=== PATIENT | male | born 1985 | race African-American/Black ===

== ENCOUNTER 2020-11-03 13:35 | Inpatient (IN) | payer OTHER ==
[~2020-11-03] VITALS: Ht 182.9 cm; Wt 124.6 kg
[2020-11-03] MEDS ORDERED: ASPirin 81 mg TAB PO ONE (14:00)
[2020-11-03 14:54] LABS: Basophils # (auto) 0.1 10 ^3/uL (0-0.2); Eosinophils # (auto) 0.1 10 ^3/uL (0-0.8); Eosinophils % (auto) 2.1 % (0.0-7.0); Hematocrit 41.7 % (41.0-53.0); Hemoglobin 14.7 g/dL (13.5-17.5); Lymphocytes # (auto) 2.2 10 ^3/uL (0.4-5.4); Lymphocytes % (auto) 35.7 % (10.0-50.0); Mean Corpuscular Hemoglobin 30.1 pg (28.0-32.0); Mean Corpuscular Hgb Conc. 35.2 g/dL (32.0-36.0); Mean Corpuscular Volume 85.4 fL (80.0-100.0); Monocytes # (auto) 0.7 10 ^3/uL (0-1.3); Monocytes % (auto) 10.7 % (0.0-12.0); Neutrophils # (auto) 3.1 10 ^3/uL (1.6-8.6); Neutrophils % (auto) 50.5 % (37.0-80.0); Nucleated Red Blood Cells % 0.5 %; Platelet Count (auto) 252 10^3/uL (140-450); Red Blood Cells 4.89 10^6/uL (4.5-5.90); Red Cell Distribution Width 13.9 % (11.8-14.3); White Blood Cell 6.2 10^3/uL (4.4-10.8)
[2020-11-03 15:08] LABS: INR 1.03 (0.9-1.15); Partial Thromboplastin Time 25.8 sec (23.0-31.2)
[2020-11-03 15:09] LABS: Anion Gap 7 (5-15); Calcium 8.8 mg/dL (8.5-10.1); Carbon Dioxide 22 mmol/L (21-32); Chloride 111 mmol/L (98-107); Glucose 125 mg/dL (74-106); Potassium 3.9 mmol/L (3.5-5.1); Sodium 140 mmol/L (136-145)
[2020-11-03 15:17] LABS: Alanine Aminotransferase 44 U/L (16-61); Albumin 3.8 g/dL (3.4-5.0); Alkaline Phosphatase 64 U/L (45-117); Aspartate Aminotransferase 26 U/L (15-37); Bilirubin, Total 0.4 mg/dL (0.2-1.0); GFR African American 152 mL/min; GFR Non-African American 125 mL/min; Total Protein 6.9 g/dL (6.4-8.2)
[2020-11-03] MEDS ORDERED: ONDANSETRON HCL 4 MG/2 ML VIAL IV PRN (16:30)
[2020-11-03] MEDS ORDERED: DEXTROSE (50%) 50ML SYRG IV PRN (16:30)
[2020-11-03] MEDS ORDERED: DOCUSATE SOD 100 MG CAP PO PRN (16:30)
[2020-11-03] MEDS ORDERED: HYDROcodone-ACET 10/325MG TAB PO PRN (16:30)
[2020-11-03] MEDS ORDERED: MORPHINE SULF INJ 2 MG/ML SYRINGE 1ML IV PRN (16:30)
[2020-11-03] MEDS ORDERED: NITROGLYCERIN 0.4 MG SL TAB SL PRN (16:30)
[2020-11-03 16:48] LABS: BUN/Creatinine Ratio 14.7; Blood Urea Nitrogen 11 mg/dL (7-18)
[2020-11-03] MEDS ORDERED: SOD CHL 0.45% 1,000 ML IV ONE (17:30)
[2020-11-03] MEDS: metFORMIN HYDROCHLORIDE 500 MG TAB PO SCH (18:51)
[2020-11-03] MEDS: FUROSEMIDE 40 MG TAB PO SCH (18:51)
[2020-11-03 20:00] VITALS: BP 152/98
[2020-11-03 22:00] VITALS: BP 146/86
[2020-11-03] MEDS: ACCU-CHEK COMFORT CURVE STRIP VI SCH (22:00)
[2020-11-03] MEDS: CARVEDILOL 12.5 MG TAB PO SCH (22:44)
[2020-11-03] MEDS: InsuLIN REG 1unit/0.01ml Soln (100units/ml) SC SCH (22:47)
[2020-11-03] MEDS: INSULIN LANTUS (GLARGINE) 1 /0.01ml (100units/ml) SC SCH (22:48)
[2020-11-04] MEDS ORDERED: SACU1TAB7 PO (04:13)
[2020-11-04 05:00] VITALS: BP 128/83
[2020-11-04] MEDS: metFORMIN HYDROCHLORIDE 500 MG TAB PO SCH ×2 (06:20→17:09)
[2020-11-04] MEDS: FUROSEMIDE 40 MG TAB PO SCH ×2 (06:20→17:10)
[2020-11-04] MEDS ORDERED: METF-371 PO (06:33)
[2020-11-04 08:40] VITALS: BP 134/90
[2020-11-04] MEDS: CARVEDILOL 12.5 MG TAB PO SCH ×2 (10:19→21:43)
[2020-11-04] MEDS: InsuLIN REG 1unit/0.01ml Soln (100units/ml) SC SCH ×2 (10:20→22:00)
[2020-11-04] MEDS: ENOXAPARIN SOD 40 MG/0.4 ML SYRINGE SC SCH (10:22)
[2020-11-04] MEDS: ACCU-CHEK COMFORT CURVE STRIP VI SCH ×2 (10:22→21:44)
[2020-11-04] MEDS ORDERED: OPTISON 3ml Vial for INJ IV ONE (10:34)
[2020-11-04 13:00] VITALS: BP 128/81
[2020-11-04 17:00] VITALS: BP 133/73
[2020-11-04 22:00] VITALS: BP 122/74
[2020-11-04] MEDS: INSULIN LANTUS (GLARGINE) 1 /0.01ml (100units/ml) SC SCH (22:00)
[2020-11-05 05:00] VITALS: BP 118/73
[2020-11-05] MEDS: FUROSEMIDE 40 MG TAB PO SCH (06:10)
[2020-11-05] MEDS: metFORMIN HYDROCHLORIDE 500 MG TAB PO SCH (06:26)
[2020-11-05 09:04] VITALS: BP 127/88
[2020-11-05] MEDS: CARVEDILOL 12.5 MG TAB PO SCH (09:40)
[2020-11-05] MEDS: ENOXAPARIN SOD 40 MG/0.4 ML SYRINGE SC SCH (09:41)
[2020-11-05] MEDS: InsuLIN REG 1unit/0.01ml Soln (100units/ml) SC SCH (09:42)
[2020-11-05] MEDS: ACCU-CHEK COMFORT CURVE STRIP VI SCH (09:42)
[2020-11-05] MEDS ORDERED: CARV25TA55 PO (15:02)
[2020-11-05 15:45] VITALS: BP 128/62
== END 2020-11-05 17:10 | DRG 281 ==
LOC: EDBD 13:35 → ER 13:35 → EEVIPCON 13:35 → TELE-WESTW 16:38
PROVIDERS: ADMIT Internal Medicine; ATTEND Internal Medicine
PROC: 4B02XTZ Measurement of Cardiac Defibrillator, External Approach (ICD-10-PCS; principal; 2020-11-05)
DX: I21.9 Acute myocardial infarction, unspecified (principal); I42.9 Cardiomyopathy, unspecified; E11.9 Type 2 diabetes mellitus without complications; E78.5 Hyperlipidemia, unspecified; F12.90 Cannabis use, unspecified, uncomplicated; I49.9 Cardiac arrhythmia, unspecified; I10 Essential (primary) hypertension; Z87.891 Personal history of nicotine dependence; Z95.810 Presence of automatic (implantable) cardiac defibrillator; Z88.8 Allergy status to other drugs, medicaments and biological substances; Z20.822 Contact with and (suspected) exposure to COVID-19
CPT/HCPCS: 36415; 71045; 80053; 82962; 83880; 84484; 85025; 85610; 85730; 87426; 93005; 93306; 96360; 96361; G0378; J1815; Q9956

== ENCOUNTER 2021-09-24 09:40 | Emergency (ER) | payer OTHER ==
[~2021-09-24] VITALS: Ht 188 cm; Wt 127.0 kg
[~2021-09-24 09:40] MED LIST: CARV25TA55 PO; METF-371 PO; SACU1TAB7 PO
[2021-09-24 11:08] LABS: Basophils # (auto) 0.1 10 ^3/uL (0-0.2); Eosinophils # (auto) 0.1 10 ^3/uL (0-0.8); Eosinophils % (auto) 1.1 % (0.0-7.0); Hematocrit 40.2 % (41.0-53.0); Hemoglobin 13.7 g/dL (13.5-17.5); Lymphocytes # (auto) 1.4 10 ^3/uL (0.4-5.4); Lymphocytes % (auto) 18.3 % (10.0-50.0); Mean Corpuscular Hemoglobin 28.3 pg (28.0-32.0); Mean Corpuscular Volume 83.3 fL (80.0-100.0); Monocytes # (auto) 0.4 10 ^3/uL (0-1.3); Monocytes % (auto) 4.7 % (0.0-12.0); Neutrophils # (auto) 5.9 10 ^3/uL (1.6-8.6); Neutrophils % (auto) 74.9 % (37.0-80.0); Nucleated Red Blood Cells % 0.1 %; Red Blood Cells 4.83 10^6/uL (4.5-5.90); White Blood Cell 7.9 10^3/uL (4.4-10.8)
[2021-09-24] MEDS ORDERED: ASPirin 81 mg TAB PO ONE (11:15)
[2021-09-24 14:01] LABS: Albumin 3.2 g/dL (3.4-5.0); BUN/Creatinine Ratio 10.3; Calcium 8.5 mg/dL (8.5-10.1); Potassium 4.2 mmol/L (3.5-5.1)
[2021-09-24 14:05] LABS: Bilirubin, Total 0.6 mg/dL (0.2-1.0); Total Protein 6.4 g/dL (6.4-8.2)
[2021-09-24 14:38] VITALS: BP 144/92
[2021-09-24 15:59] LABS: Urine Bacteria NONE SEEN /hpf (None Seen); Urine Blood Negative /uL (Negative); Urine Specific Gravity 1.008 (1.001-1.035); Urine WBC <1 /hpf (0 - 3)
== END 2021-09-24 15:15 | disposition left against medical advice (07) ==
LOC: EDBD 09:40 → ER 09:52 → EEVIPCON 09:52 → ER 15:15
DX: I24.9 Acute ischemic heart disease, unspecified (principal); E11.9 Type 2 diabetes mellitus without complications; I10 Essential (primary) hypertension
CPT/HCPCS: 36415; 71045; 80053; 81001; 84484; 85025; 93005

== ENCOUNTER 2021-11-19 16:26 | Inpatient (IN) | payer OTHER ==
[~2021-11-19] VITALS: Ht 188 cm; Wt 133.4 kg
[2021-11-19] MEDS ORDERED: ASPirin 81 mg TAB PO ONE (16:45)
[2021-11-19 18:17] LABS: Albumin 3.1 g/dL (3.4-5.0); Calcium 8.6 mg/dL (8.5-10.1); Potassium 4.4 mmol/L (3.5-5.1)
[2021-11-19 18:20] LABS: BUN/Creatinine Ratio 15.7; Bilirubin, Total 0.9 mg/dL (0.2-1.0)
[2021-11-19] MEDS ORDERED: IOHEXOL 350 MG/ML 100ML IJ ONE (19:16)
[2021-11-19] MEDS ORDERED: FUROSEMIDE 100 MG/10ML VIAL IV ONE (19:30)
[2021-11-19] MEDS ORDERED: NITROGLYCERIN 0.4 MG SL TAB SL PRN (21:00)
[2021-11-19] MEDS ORDERED: HYDROcodone-ACET 10/325MG TAB PO PRN (21:00)
[2021-11-19] MEDS ORDERED: MORPHINE SULFATE INJECTION 2 MG/ML SYRG IV PRN (21:00)
[2021-11-19] MEDS: SACUBITRIL-VALSARTAN 24mg/26mg TAB PO SCH ×2 (22:00→22:21)
[2021-11-19] MEDS: FUROSEMIDE 40 MG/4 ML VIAL IV SCH (22:00)
[2021-11-19] MEDS: POTASSIUM CHL 20 Meq TABLET PO SCH ×2 (22:00→22:21)
[2021-11-19 22:06] LABS: Basophils # (auto) 0 10 ^3/uL (0-0.2); Basophils % (auto) 0.5 % (0.0-2.0); Eosinophils # (auto) 0.1 10 ^3/uL (0-0.8); Eosinophils % (auto) 1.4 % (0.0-7.0); Hematocrit 39.2 % (41.0-53.0); Lymphocytes # (auto) 1.8 10 ^3/uL (0.4-5.4); Lymphocytes % (auto) 23.2 % (10.0-50.0); Mean Corpuscular Hgb Conc. 33.1 g/dL (32.0-36.0); Mean Corpuscular Volume 81.7 fL (80.0-100.0); Monocytes # (auto) 0.4 10 ^3/uL (0-1.3); Monocytes % (auto) 5.4 % (0.0-12.0); Neutrophils # (auto) 5.4 10 ^3/uL (1.6-8.6); Neutrophils % (auto) 69.5 % (37.0-80.0); Nucleated Red Blood Cells % 0.1 %; White Blood Cell 7.8 10^3/uL (4.4-10.8)
[2021-11-19] MEDS: CARVEDILOL 12.5 MG TAB PO SCH (22:20)
[2021-11-20] VITALS (25 sets, daily range): BP systolic 86–116; BP diastolic 46–91
[2021-11-20] MEDS: NOREPINEPHRINE 8 MG/250ML KIT 250 ML IV SCH ×2 (00:35→00:45)
[2021-11-20] MEDS ORDERED: NOREPINEPHRINE 8 MG/250ML KIT 250 ML IV ONE (00:40)
[2021-11-20] MEDS ORDERED: VANCOMYCIN 1GM/250ML 250 ML IV ONE ×2 (03:15→04:15)
[2021-11-20] MEDS ORDERED: PIPERACILLIN-TAZO 4.5GM 100 ML IV ONE (03:15)
[2021-11-20] MEDS ORDERED: AMIODARONE HCL 150 MG in D5W 5% 100 ML IV ONE (08:00)
[2021-11-20] MEDS: metFORMIN HYDROCHLORIDE 850 MG TAB PO SCH ×3 (08:00→18:00)
[2021-11-20 08:07] LABS: Potassium 4.5 mmol/L (3.5-5.1)
[2021-11-20 08:14] LABS: Albumin 2.8 g/dL (3.4-5.0); BUN/Creatinine Ratio 13.7; Bilirubin, Total 0.7 mg/dL (0.2-1.0); Calcium 8.1 mg/dL (8.5-10.1); Total Protein 5.5 g/dL (6.4-8.2)
[2021-11-20] MEDS ORDERED: AMIODARONE 450mg/250ml AE 250 ML IV SCH (08:15)
[2021-11-20] MEDS: FUROSEMIDE 40 MG/4 ML VIAL IV SCH ×2 (08:46→20:32)
[2021-11-20] MEDS: CARVEDILOL 12.5 MG TAB PO SCH ×3 (08:47→22:00)
[2021-11-20] MEDS: ASPirin 81 mg TAB PO SCH (08:47)
[2021-11-20] MEDS: POTASSIUM CHL 20 Meq TABLET PO SCH ×2 (08:47→22:00)
[2021-11-20] MEDS: ENOXAPARIN SOD 40 MG/0.4 ML SYRINGE SC SCH (08:48)
[2021-11-20] MEDS ORDERED: AMIODARONE 450mg/250ml AE 250 ML IV ONE (18:50)
[2021-11-20] MEDS: AZITHROMYCIN 500MG/ 250ML 250 ML IV SCH (20:44)
[2021-11-20] MEDS: PIPERACILLIN-TAZOB 3.375GM 100 ML IV SCH (22:00)
[2021-11-20] MEDS: IPRATROPIUM BROM 0.5 MG/2.5ML INH SOL NEB PRN (22:08)
[2021-11-21] VITALS (51 sets, daily range): BP systolic 102–182; BP diastolic 40–107
[2021-11-21] MEDS: NOREPINEPHRINE 8 MG/250ML KIT 250 ML IV SCH (02:53)
[2021-11-21] MEDS ORDERED: DEXTROSE (50%) 50ML SYRG IV PRN (05:15)
[2021-11-21] MEDS: PIPERACILLIN-TAZOB 3.375GM 100 ML IV SCH ×3 (05:36→22:02)
[2021-11-21 05:51] LABS: Potassium 4.4 mmol/L (3.5-5.1)
[2021-11-21 05:55] LABS: BUN/Creatinine Ratio 15.4; Calcium 8.2 mg/dL (8.5-10.1); Magnesium 2.3 mg/dL (1.6-2.6)
[2021-11-21] MEDS: InsuLIN REG 1unit/0.01ml Soln (100units/ml) SC SCH ×4 (06:20→22:00)
[2021-11-21] MEDS: ACCU-CHEK COMFORT CURVE STRIP VI SCH ×4 (06:28→22:04)
[2021-11-21] MEDS: metFORMIN HYDROCHLORIDE 850 MG TAB PO SCH ×2 (08:00→18:00)
[2021-11-21] MEDS ORDERED: HYALURONIDASE 150 UNIT/1 ML SUBCUT ONE (08:30)
[2021-11-21] MEDS: POTASSIUM CHL 20 Meq TABLET PO SCH ×2 (10:00→22:03)
[2021-11-21] MEDS: FUROSEMIDE 40 MG/4 ML VIAL IV SCH ×2 (10:32→22:02)
[2021-11-21] MEDS: ASPirin 81 mg TAB PO SCH (10:32)
[2021-11-21] MEDS: AMIODARONE HCL 200 MG TAB PO SCH ×2 (10:32→22:03)
[2021-11-21] MEDS: AZITHROMYCIN 500MG/ 250ML 250 ML IV SCH (10:32)
[2021-11-21] MEDS: ENOXAPARIN SOD 40 MG/0.4 ML SYRINGE SC SCH (10:33)
[2021-11-21] MEDS: CARVEDILOL 12.5 MG TAB PO SCH ×2 (11:48→22:03)
[2021-11-21] MEDS ORDERED: FUROSEMIDE 40 MG/4 ML VIAL IV ONE (15:45)
[2021-11-21] MEDS ORDERED: ENOXAPARIN SOD 80 MG/0.8ML SYRINGE SC ONE (15:45)
[2021-11-21 16:01] LABS: BUN/Creatinine Ratio 12.9; Calcium 7.8 mg/dL (8.5-10.1); Potassium 4.7 mmol/L (3.5-5.1)
[2021-11-21] MEDS ORDERED: LORazepam 2MG/ML-1ML VIAL ONE (16:07)
[2021-11-21] MEDS: SODIUM CHLORIDE 0.9% 1,000 ML IV SCH (16:49)
[2021-11-21] MEDS ORDERED: IOHEXOL 350 MG/ML 100ML IJ ONE (18:04)
[2021-11-21 19:00] LABS: INR 1.41 (0.9-1.15)
[2021-11-21] MEDS: ENOXAPARIN SOD 120 MG/0.8 ML SYRINGE SC SCH (22:02)
[2021-11-21] MEDS: IPRATROPIUM BROM 0.5 MG/2.5ML INH SOL NEB PRN (23:00)
[2021-11-22] VITALS (36 sets, daily range): BP systolic 109–161; BP diastolic 56–91
[2021-11-22] MEDS: NOREPINEPHRINE 8 MG/250ML KIT 250 ML IV SCH (00:45)
[2021-11-22] MEDS: LORazepam 2MG/ML-1ML VIAL IV PRN ×2 (00:53→12:09)
[2021-11-22 05:10] LABS: Albumin 2.8 g/dL (3.4-5.0); BUN/Creatinine Ratio 15.4; Potassium 4.3 mmol/L (3.5-5.1)
[2021-11-22 05:18] LABS: Bilirubin, Total 0.8 mg/dL (0.2-1.0); Total Protein 5.6 g/dL (6.4-8.2)
[2021-11-22] MEDS: PIPERACILLIN-TAZOB 3.375GM 100 ML IV SCH ×3 (06:25→21:15)
[2021-11-22] MEDS: ACCU-CHEK COMFORT CURVE STRIP VI SCH ×4 (06:33→21:33)
[2021-11-22] MEDS: InsuLIN REG 1unit/0.01ml Soln (100units/ml) SC SCH ×4 (06:33→21:35)
[2021-11-22] MEDS: metFORMIN HYDROCHLORIDE 850 MG TAB PO SCH ×2 (07:50→17:38)
[2021-11-22] MEDS: CARVEDILOL 12.5 MG TAB PO SCH (10:00)
[2021-11-22] MEDS: FUROSEMIDE 40 MG/4 ML VIAL IV SCH (10:23)
[2021-11-22] MEDS: AZITHROMYCIN 500MG/ 250ML 250 ML IV SCH (10:23)
[2021-11-22] MEDS: AMIODARONE HCL 200 MG TAB PO SCH ×2 (10:28→21:15)
[2021-11-22] MEDS: ASPirin 81 mg TAB PO SCH (10:28)
[2021-11-22] MEDS: POTASSIUM CHL 20 Meq TABLET PO SCH ×2 (10:28→21:14)
[2021-11-22] MEDS: ENOXAPARIN SOD 120 MG/0.8 ML SYRINGE SC SCH ×2 (10:28→21:16)
[2021-11-22] MEDS: metOLazone 5 MG TAB PO SCH (11:41)
[2021-11-22] MEDS: DOBUTamine 1000MCG/ML 250 ML IV SCH ×2 (11:41→17:54)
[2021-11-22] MEDS ORDERED: LORazepam 2MG/ML-1ML VIAL IV PRN (12:30)
[2021-11-22] MEDS: SODIUM CHLORIDE 0.9% 1,000 ML IV SCH (12:52)
[2021-11-22] MEDS: SPIRONOLACTONE 25 MG TAB PO SCH (17:54)
[2021-11-22] MEDS: BUMETANIDE 2.5mg/10ml (0.25 mg/ml) INJ IV SCH (17:54)
[2021-11-22] MEDS: SACUBITRIL-VALSARTAN 24mg/26mg TAB PO SCH (21:14)
[2021-11-23] VITALS (40 sets, daily range): BP systolic 97–126; BP diastolic 42–73
[2021-11-23] MEDS: DOBUTamine 1000MCG/ML 250 ML IV SCH ×5 (01:01→20:19)
[2021-11-23 05:25] LABS: Basophils # (auto) 0.1 10 ^3/uL (0-0.2); Basophils % (auto) 1.2 % (0.0-2.0); Eosinophils # (auto) 0.2 10 ^3/uL (0-0.8); Eosinophils % (auto) 1.6 % (0.0-7.0); Hemoglobin 13.2 g/dL (13.5-17.5); Lymphocytes # (auto) 1.3 10 ^3/uL (0.4-5.4); Lymphocytes % (auto) 10.5 % (10.0-50.0); Mean Corpuscular Hemoglobin 27.1 pg (28.0-32.0); Mean Corpuscular Hgb Conc. 33.9 g/dL (32.0-36.0); Mean Corpuscular Volume 79.9 fL (80.0-100.0); Monocytes # (auto) 0.9 10 ^3/uL (0-1.3); Monocytes % (auto) 7.3 % (0.0-12.0); Neutrophils # (auto) 9.8 10 ^3/uL (1.6-8.6); Neutrophils % (auto) 79.4 % (37.0-80.0); Nucleated Red Blood Cells % 0.1 %; Red Blood Cells 4.88 10^6/uL (4.5-5.90); Red Cell Distribution Width 16.1 % (11.8-14.3); White Blood Cell 12.3 10^3/uL (4.4-10.8)
[2021-11-23 05:45] LABS: Albumin 2.6 g/dL (3.4-5.0); BUN/Creatinine Ratio 14.9; Calcium 8.2 mg/dL (8.5-10.1); Potassium 3.5 mmol/L (3.5-5.1)
[2021-11-23 05:47] LABS: Bilirubin, Total 0.9 mg/dL (0.2-1.0); Total Protein 5.6 g/dL (6.4-8.2)
[2021-11-23] MEDS: BUMETANIDE 2.5mg/10ml (0.25 mg/ml) INJ IV SCH ×2 (06:25→17:38)
[2021-11-23] MEDS: PIPERACILLIN-TAZOB 3.375GM 100 ML IV SCH ×3 (06:26→22:29)
[2021-11-23] MEDS: SPIRONOLACTONE 25 MG TAB PO SCH ×2 (06:26→17:38)
[2021-11-23] MEDS: metFORMIN HYDROCHLORIDE 850 MG TAB PO SCH ×2 (08:00→18:00)
[2021-11-23] MEDS: AMIODARONE HCL 200 MG TAB PO SCH ×2 (10:00→22:29)
[2021-11-23] MEDS: POTASSIUM CHL 20 Meq TABLET PO SCH ×2 (10:00→22:28)
[2021-11-23] MEDS: SACUBITRIL-VALSARTAN 24mg/26mg TAB PO SCH ×2 (10:00→22:28)
[2021-11-23] MEDS: metOLazone 5 MG TAB PO SCH (10:00)
[2021-11-23] MEDS: AZITHROMYCIN 500MG/ 250ML 250 ML IV SCH (10:52)
[2021-11-23] MEDS: ENOXAPARIN SOD 120 MG/0.8 ML SYRINGE SC SCH ×2 (10:52→22:28)
[2021-11-23] MEDS: ASPirin 81 mg TAB PO SCH (10:52)
[2021-11-23] MEDS: ACCU-CHEK COMFORT CURVE STRIP VI SCH (22:28)
[2021-11-23] MEDS: InsuLIN REG 1unit/0.01ml Soln (100units/ml) SC SCH ×2 (22:43→22:57)
[2021-11-24] VITALS (22 sets, daily range): BP systolic 95–151; BP diastolic 55–88
[2021-11-24] MEDS: DOBUTamine 1000MCG/ML 250 ML IV SCH ×3 (04:01→17:53)
[2021-11-24 05:12] LABS: BUN/Creatinine Ratio 13.1; Calcium 8.8 mg/dL (8.5-10.1); Potassium 3.5 mmol/L (3.5-5.1)
[2021-11-24] MEDS: InsuLIN REG 1unit/0.01ml Soln (100units/ml) SC SCH ×4 (06:26→21:28)
[2021-11-24] MEDS: ACCU-CHEK COMFORT CURVE STRIP VI SCH ×4 (06:26→21:19)
[2021-11-24] MEDS: SPIRONOLACTONE 25 MG TAB PO SCH ×2 (06:26→17:06)
[2021-11-24] MEDS: BUMETANIDE 2.5mg/10ml (0.25 mg/ml) INJ IV SCH ×2 (06:27→17:05)
[2021-11-24] MEDS: PIPERACILLIN-TAZOB 3.375GM 100 ML IV SCH ×3 (06:27→21:16)
[2021-11-24] MEDS: metFORMIN HYDROCHLORIDE 850 MG TAB PO SCH ×2 (08:00→16:58)
[2021-11-24] MEDS: SACUBITRIL-VALSARTAN 24mg/26mg TAB PO SCH ×2 (10:00→21:18)
[2021-11-24] MEDS: ENOXAPARIN SOD 120 MG/0.8 ML SYRINGE SC SCH ×2 (10:00→21:29)
[2021-11-24] MEDS: AMIODARONE HCL 200 MG TAB PO SCH ×2 (10:00→21:17)
[2021-11-24] MEDS: metOLazone 5 MG TAB PO SCH (10:00)
[2021-11-24] MEDS: ASPirin 81 mg TAB PO SCH (10:00)
[2021-11-24] MEDS: METOPROLOL SUCCINATE XL 50 MG TAB PO SCH (10:00)
[2021-11-24] MEDS: POTASSIUM CHL 20 Meq TABLET PO SCH ×2 (10:00→21:18)
[2021-11-24] MEDS: AZITHROMYCIN 500MG/ 250ML 250 ML IV SCH (11:48)
[2021-11-25] MEDS: DOBUTamine 1000MCG/ML 250 ML IV SCH ×5 (02:19→22:15)
[2021-11-25 05:00] VITALS: BP 105/60
[2021-11-25] MEDS: PIPERACILLIN-TAZOB 3.375GM 100 ML IV SCH ×3 (06:48→22:13)
[2021-11-25] MEDS: SPIRONOLACTONE 25 MG TAB PO SCH ×2 (06:48→17:13)
[2021-11-25] MEDS: InsuLIN REG 1unit/0.01ml Soln (100units/ml) SC SCH ×4 (06:49→22:26)
[2021-11-25] MEDS: ACCU-CHEK COMFORT CURVE STRIP VI SCH ×4 (06:50→22:14)
[2021-11-25] MEDS: metFORMIN HYDROCHLORIDE 850 MG TAB PO SCH ×2 (08:00→17:13)
[2021-11-25 08:42] VITALS: BP 110/70
[2021-11-25] MEDS: AZITHROMYCIN 500MG/ 250ML 250 ML IV SCH (08:46)
[2021-11-25] MEDS: ASPirin 81 mg TAB PO SCH (08:47)
[2021-11-25] MEDS: AMIODARONE HCL 200 MG TAB PO SCH (08:47)
[2021-11-25] MEDS: ENOXAPARIN SOD 120 MG/0.8 ML SYRINGE SC SCH ×3 (08:47→22:00)
[2021-11-25] MEDS: BUMETANIDE 2.5mg/10ml (0.25 mg/ml) INJ IV SCH (08:47)
[2021-11-25 08:48] LABS: Calcium 8.3 mg/dL (8.5-10.1); Potassium 3.8 mmol/L (3.5-5.1)
[2021-11-25] MEDS: METOPROLOL SUCCINATE XL 50 MG TAB PO SCH (08:48)
[2021-11-25] MEDS: SACUBITRIL-VALSARTAN 24mg/26mg TAB PO SCH ×2 (08:48→22:13)
[2021-11-25] MEDS: metOLazone 5 MG TAB PO SCH (08:48)
[2021-11-25] MEDS: POTASSIUM CHL 20 Meq TABLET PO SCH ×2 (08:48→22:13)
[2021-11-25 11:56] VITALS: BP 109/61
[2021-11-25 14:07] VITALS: BP 109/61
[2021-11-25 17:01] VITALS: BP 114/62
[2021-11-25 22:00] VITALS: BP 113/65
[2021-11-26] MEDS: DOBUTamine 1000MCG/ML 250 ML IV SCH ×4 (03:55→22:55)
[2021-11-26 05:00] VITALS: BP 112/60
[2021-11-26 05:55] LABS: BUN/Creatinine Ratio 15.5; Calcium 8.6 mg/dL (8.5-10.1)
[2021-11-26] MEDS: PIPERACILLIN-TAZOB 3.375GM 100 ML IV SCH ×3 (06:13→21:35)
[2021-11-26] MEDS: InsuLIN REG 1unit/0.01ml Soln (100units/ml) SC SCH ×4 (06:18→21:49)
[2021-11-26] MEDS: SPIRONOLACTONE 25 MG TAB PO SCH ×2 (06:18→17:11)
[2021-11-26] MEDS: ACCU-CHEK COMFORT CURVE STRIP VI SCH ×4 (06:19→21:35)
[2021-11-26] MEDS: metFORMIN HYDROCHLORIDE 850 MG TAB PO SCH ×2 (08:00→18:00)
[2021-11-26 09:00] VITALS: BP 110/55
[2021-11-26] MEDS: BUMETANIDE 2.5mg/10ml (0.25 mg/ml) INJ IV SCH (09:45)
[2021-11-26] MEDS: ASPirin 81 mg TAB PO SCH (09:46)
[2021-11-26] MEDS: AMIODARONE HCL 200 MG TAB PO SCH (09:46)
[2021-11-26] MEDS: AZITHROMYCIN 500MG/ 250ML 250 ML IV SCH (09:46)
[2021-11-26] MEDS: SACUBITRIL-VALSARTAN 24mg/26mg TAB PO SCH ×2 (09:46→21:35)
[2021-11-26] MEDS: ENOXAPARIN SOD 120 MG/0.8 ML SYRINGE SC SCH ×2 (09:47→21:35)
[2021-11-26] MEDS: METOPROLOL SUCCINATE XL 50 MG TAB PO SCH (09:47)
[2021-11-26] MEDS: POTASSIUM CHL 20 Meq TABLET PO SCH (09:47)
[2021-11-26] MEDS: metOLazone 5 MG TAB PO SCH (09:47)
[2021-11-26 12:59] VITALS: BP 124/77
[2021-11-26 13:20] LABS: Hepatitis B Surface Antibody Negative (Negative)
[2021-11-26 13:51] LABS: Hepatitis A Total Antibody Negative (Negative)
[2021-11-26 14:48] LABS: Hepatitis C Antibody Negative (Negative)
[2021-11-26 16:07] VITALS: BP 125/71
[2021-11-26 22:00] VITALS: BP 128/54
[2021-11-27] MEDS: DOBUTamine 1000MCG/ML 250 ML IV SCH (02:44)
[2021-11-27 05:00] VITALS: BP 127/75
[2021-11-27 05:49] LABS: Potassium 4.4 mmol/L (3.5-5.1)
[2021-11-27 05:52] LABS: BUN/Creatinine Ratio 14.8; Calcium 8.9 mg/dL (8.5-10.1)
[2021-11-27] MEDS: PIPERACILLIN-TAZOB 3.375GM 100 ML IV SCH ×2 (06:16→19:30)
[2021-11-27] MEDS: SPIRONOLACTONE 25 MG TAB PO SCH ×2 (06:17→19:30)
[2021-11-27] MEDS: ACCU-CHEK COMFORT CURVE STRIP VI SCH ×4 (06:40→21:32)
[2021-11-27] MEDS: InsuLIN REG 1unit/0.01ml Soln (100units/ml) SC SCH ×4 (06:41→21:32)
[2021-11-27] MEDS: ENOXAPARIN SOD 40 MG/0.4 ML SYRINGE SC SCH (09:15)
[2021-11-27 09:23] VITALS: BP 120/78
[2021-11-27 09:27] LABS: Albumin 3.1 g/dL (3.4-5.0); BUN/Creatinine Ratio 15.3; Calcium 9.1 mg/dL (8.5-10.1); Phosphorus 3.5 mg/dL (2.5-4.90); Potassium 4.5 mmol/L (3.5-5.1)
[2021-11-27] MEDS: BUMETANIDE 2.5mg/10ml (0.25 mg/ml) INJ IV SCH (09:32)
[2021-11-27] MEDS: SACUBITRIL-VALSARTAN 24mg/26mg TAB PO SCH ×2 (09:32→21:29)
[2021-11-27] MEDS: metFORMIN HYDROCHLORIDE 850 MG TAB PO SCH ×2 (09:34→19:30)
[2021-11-27] MEDS: ASPirin 81 mg TAB PO SCH (09:34)
[2021-11-27] MEDS: AMIODARONE HCL 200 MG TAB PO SCH (09:34)
[2021-11-27] MEDS: METOPROLOL SUCCINATE XL 50 MG TAB PO SCH (09:35)
[2021-11-27] MEDS: metOLazone 5 MG TAB PO SCH (09:35)
[2021-11-27] MEDS: AZITHROMYCIN 500MG/ 250ML 250 ML IV SCH (11:30)
[2021-11-27 13:00] VITALS: BP 112/78
[2021-11-27 17:00] VITALS: BP 119/82
[2021-11-27 22:00] VITALS: BP 120/74
[2021-11-28] MEDS: PIPERACILLIN-TAZOB 3.375GM 100 ML IV SCH ×2 (01:55→10:07)
[2021-11-28 05:00] VITALS: BP 112/66
[2021-11-28] MEDS: InsuLIN REG 1unit/0.01ml Soln (100units/ml) SC SCH ×3 (06:11→17:00)
[2021-11-28] MEDS: SPIRONOLACTONE 25 MG TAB PO SCH (06:11)
[2021-11-28] MEDS: ACCU-CHEK COMFORT CURVE STRIP VI SCH ×3 (06:11→16:59)
[2021-11-28] MEDS: metFORMIN HYDROCHLORIDE 850 MG TAB PO SCH (08:05)
[2021-11-28 08:15] LABS: Albumin 3.1 g/dL (3.4-5.0); Calcium 8.9 mg/dL (8.5-10.1); Potassium 4.3 mmol/L (3.5-5.1)
[2021-11-28 08:18] LABS: BUN/Creatinine Ratio 16.8; Bilirubin, Total 0.5 mg/dL (0.2-1.0)
[2021-11-28 08:44] VITALS: BP 128/83
[2021-11-28] MEDS: ENOXAPARIN SOD 40 MG/0.4 ML SYRINGE SC SCH (10:00)
[2021-11-28] MEDS: AZITHROMYCIN 500MG/ 250ML 250 ML IV SCH (10:07)
[2021-11-28] MEDS: BUMETANIDE 2.5mg/10ml (0.25 mg/ml) INJ IV SCH (10:07)
[2021-11-28] MEDS: AMIODARONE HCL 200 MG TAB PO SCH (10:08)
[2021-11-28] MEDS: ASPirin 81 mg TAB PO SCH (10:08)
[2021-11-28] MEDS: SACUBITRIL-VALSARTAN 24mg/26mg TAB PO SCH (10:08)
[2021-11-28] MEDS: METOPROLOL SUCCINATE XL 50 MG TAB PO SCH (10:09)
[2021-11-28] MEDS: metOLazone 5 MG TAB PO SCH (10:09)
[2021-11-28 13:01] VITALS: BP 118/74
[2021-11-28] MEDS ORDERED: BUME2TAB5 PO (13:19)
[2021-11-28] MEDS ORDERED: SPIR25TA PO (13:19)
[2021-11-28] MEDS ORDERED: METO5TAB5 PO (13:19)
[2021-11-28] MEDS ORDERED: METO-6 PO (13:19)
[2021-11-28 17:28] VITALS: BP 116/76
== END 2021-11-28 18:15 | disposition home or self-care (01) | DRG 193 ==
LOC: EDBD 16:26 → ER 16:26 → EEVIPCON 16:26 → TELE 20:54 → TELE-WESTW 23:18 → TELE 11-20 00:59 → ICU CENTRL 11-20 09:26 → DOU IN ICU 11-22 03:44 → TELE-EAST 11-24 11:20 → TELE-WESTW 11-26 23:14
PROVIDERS: ADMIT Internal Medicine; ATTEND Internal Medicine
PROC: 05H933Z Insertion of Infusion Device into Right Brachial Vein, Percutaneous Approach (ICD-10-PCS; 2021-11-20)
PROC: B54MZZA Ultrasonography of Right Upper Extremity Veins, Guidance (ICD-10-PCS; 2021-11-20)
PROC: 05HF33Z Insertion of Infusion Device into Left Cephalic Vein, Percutaneous Approach (ICD-10-PCS; 2021-11-21)
PROC: B54NZZA Ultrasonography of Left Upper Extremity Veins, Guidance (ICD-10-PCS; 2021-11-21)
PROC: 5A09357 Assistance with Respiratory Ventilation, Less than 24 Consecutive Hours, Continuous Positive Airway Pressure (ICD-10-PCS; principal; 2021-11-22)
DX: J18.9 Pneumonia, unspecified organism (principal); I50.23 Acute on chronic systolic (congestive) heart failure; J96.20 Acute and chronic respiratory failure, unspecified whether with hypoxia or hypercapnia; I47.2 Ventricular tachycardia; I42.0 Dilated cardiomyopathy; E11.9 Type 2 diabetes mellitus without complications; E78.5 Hyperlipidemia, unspecified; I11.0 Hypertensive heart disease with heart failure; Z20.822 Contact with and (suspected) exposure to COVID-19; K76.1 Chronic passive congestion of liver; G47.30 Sleep apnea, unspecified; I25.10 Atherosclerotic heart disease of native coronary artery without angina pectoris; Z79.82 Long term (current) use of aspirin; Z82.49 Family history of ischemic heart disease and other diseases of the circulatory system; Z87.891 Personal history of nicotine dependence; Z95.810 Presence of automatic (implantable) cardiac defibrillator; Z88.8 Allergy status to other drugs, medicaments and biological substances
CPT/HCPCS: 36415; 36600; 71045; 71046; 71275; 80048; 80053; 80069; 82805; 82962; 83605; 83735; 83880; 84484; 85025; 85049; 85379; 85610; 85730; 86704; 86706; 86708; 86803; 87040; 87081; 87340; 93005; 93306; 94640; 94660; 96365; 96366; 96367; 96368; 96372; 96375; G0378; J1815; J2543; J3470; J7060